=== PATIENT | male | born 1965 | race Caucasian/White ===

== ENCOUNTER 2017-08-15 21:02 | Observation (INO) | payer BC, OTHER ==
[~2017-08-15] VITALS: Ht 167.6 cm; Wt 70.1 kg
[~2017-08-15 21:02] MED LIST: ACET-1256 PO; IBUP-1050 PO
[2017-08-15 21:50] LABS: BASO % 0.3 %; BASO ABS # 0.02 K/uL (0-0.2); EOS ABS # 0.13 K/uL (0-0.5); HEMATOCRIT 40.6 % (42-52); HEMOGLOBIN 14.1 g/dL (14.0-18.0); IG# 0.01 K/uL (0.00-0.02); LYMPH % 45.3 %; LYMPH ABS # 2.92 K/uL (1.2-3.4); MEAN CELL VOLUME 88.5 fL (80-100); MEAN CORPUSCULAR HEMOGLOBIN 30.7 pg (25-34); MEAN CORPUSCULAR HGB CONC 34.7 g/dl (32-36); MEAN PLATELET VOLUME 10.9 fL (7.4-10.4); MONO % 5.7 %; MONO ABS # 0.37 K/uL (0.11-0.59); NEUT % 46.5 %; PLATELET COUNT 217 K/uL (130-400); RED CELL DISTRIBUTION WIDTH CV 14.2 % (11.5-14.5); RED CELL DISTRIBUTION WIDTH SD 45.6 fL (36.4-46.3); WHITE BLOOD COUNT 6.45 K/uL (4.8-10.8)
--- NOTE | 2017-08-15 22:05 | DIAGNOSTIC IMAGING REPORT ---
CHEST ONE VIEW PORTABLE CLINICAL HISTORY: Chest Pain dyspnea COMPARISON STUDY: No previous studies for comparison. FINDINGS: The bones soft tissues and hemidiaphragms are normal. The cardiomediastinal silhouette is normal. The lungs are clear. The pulmonary vasculature is normal. IMPRESSION: Negative chest. The above report was generated using voice recognition software. It may contain grammatical, syntax or spelling errors. Electronically signed by: Franco Grossman M.D. 08/15/2017 10:03 PM Dictated Date/Time: 08/15/2017 10:03 PM
[2017-08-15 22:19] LABS: BLOOD UREA NITROGEN 5 mg/dl (7-18); CALCIUM 8.8 mg/dl (8.5-10.1); CARBON DIOXIDE 28 mmol/L (21-32); CKMB 1.3 ng/ml (0.5-3.6); CREATININE 1.24 mg/dl (0.60-1.40); GLUCOSE 543 mg/dl (70-99); SODIUM 132 mmol/L (136-145)
[2017-08-15] MEDS ORDERED: GLIP5TAB11 PO (22:22)
[2017-08-15] MEDS ORDERED: WARF5TAB7 PO (22:22)
[2017-08-15] MEDS ORDERED: GLC/500 PO (22:22)
[2017-08-15] MEDS ORDERED: LISI-1116 PO (22:22)
[2017-08-15] MEDS ORDERED: ATOR-24 PO (22:22)
[2017-08-15] MEDS ORDERED: GABA-113 PO (22:22)
[2017-08-15] MEDS ORDERED: INSDGI SC (22:22)
[2017-08-15] MEDS ORDERED: SODIUM CHLORIDE 0.9% 1000ML 2,000 ML IV STA (23:25)
[2017-08-15] MEDS ORDERED: NovoLIN-R INSULIN PER UNIT CHARGE IV STA (23:25)
[2017-08-16] VITALS (10 sets, daily range): BP systolic 85–126; BP diastolic 52–85; PULSE 64–80; TEMP 36.5–37; O2SAT 96–98; Ht 167.6 cm; Wt 70.1 kg
[2017-08-16] MEDS ORDERED: POLYETHYLENE (MIRALAX) 17 GM PACK PO PRN (01:15)
[2017-08-16] MEDS ORDERED: ACETAMINOPHEN 325 MG TAB PO PRN (01:15)
[2017-08-16] MEDS ORDERED: ALUMINUM/MAGNESIUM/SIMETH (MAALOX MAX) 30 ML UDC PO PRN (01:15)
[2017-08-16] MEDS ORDERED: ONDANSETRON INJ 2 MG/ML 2 ML VIAL IV PRN (01:15)
[2017-08-16] MEDS ORDERED: NITROGLYCERIN 0.4 MG SL PER TAB CHARGE SL PRN (01:15)
[2017-08-16] MEDS ORDERED: GLUCAGON FOR INJ 1 MG VIAL SQ PRN (01:30)
[2017-08-16] MEDS ORDERED: GLUCOSE 10 TABS/TUBE PO PRN (01:30)
[2017-08-16] MEDS ORDERED: DEXTROSE 50% 50 ML SYR IV PRN (01:30)
[2017-08-16] MEDS ORDERED: GLUCOSE 40% GEL 15 GM TUBE PO PRN (01:30)
[2017-08-16] MEDS ORDERED: PHARMACY GLYCEMIC MGMT CONSULT PRN (01:54)
--- NOTE | 2017-08-16 01:58 | EMERGENCY ROOM VISIT NOTE ---
History Report prepared by Shanice: Gregg Pineda Under the Supervision of: Dr. Nolberto Ron D.O. First contact with patient: 21:14 Chief Complaint: CHEST PAIN Stated Complaint: CHEST PAIN ON & OFF - DIZZY - RIGHT ARM NUMBNESS History of Present Illness The patient is a 51 year old male who presents to the Emergency Room with complaints of a resolved episode of intermittent, stabbing, chest pain that occurred 3.5 hours ago. He rates his discomfort a 2/10 in severity. The patient states his symptoms lasted for 30 minutes to an hour. He reports his symptoms radiated into his right arm as well. The patient notes he has a history of high cholesterol, diabetes, and a blood clot. He states he is on Coumadin and has not taken it for a week because he ran out. The patient reports he has had a history of this before. He notes nothing makes it better or worse. The patient denies abdominal pain, cough, shortness of breath, runny nose, sorethroat, and a history of heart disease or HTN. Source of History: patient Onset: 3.5 hours ago Position: chest Symptom Intensity: 2/10 Quality: stabbing Timing: resolved Modifying Factors (Worsening): other (nothing) Modifying Factors (Relieving): other (nothing) Associated Symptoms: No sorethroat, No cough, No SOB, No abdominal pain Note: Denies: runny nose Review of Systems See HPI for pertinent positives & negatives. A total of 10 systems reviewed and were otherwise negative. Past Medical & Surgical Medical Problems: (1) Chest pain (2) Diabetes mellitus Family History Blood clots Diabetes mellitus Heart disease Hypertension Social History Smoking Status: Current Every Day Smoker Alcohol Use: none Drug Use: none Marital Status: Housing Status: lives with significant other Occupation Status: employed Current/Historical Medications Scheduled Atorvastatin (Lipitor), 40 MG PO HS Gabapentin (Neurontin), 300 MG PO TID Glipizide (Glucotrol), 5 MG PO BID Insulin Glargine (Lantus), 10 UNITS SC QPM Lisinopril (Lisinopril), 2.5 MG PO DAILY Metformin Hcl (Glucophage), 1,000 MG PO BID Warfarin Sod (Jantoven), 5 MG PO DAILY Allergies Coded Allergies: BEE STING (Verified Allergy, Severe, ANAPHYLAXIS, 6/26/16) Physical Exam Vital Signs Date Time Temp Pulse Resp B/P (MAP) Pulse Ox O2 Delivery O2 Flow Rate FiO2 08/16/17 01:00 78 16 111/73 98 Room Air 08/16/17 00:00 78 16 123/102 98 Room Air 08/15/17 23:21 79 16 111/73 96 08/15/17 21:37 82 08/15/17 21:06 36.9 95 18 123/81 96 Room Air Physical Exam GENERAL: Sitting up in bed, alert, well appearing, well nourished, no distress, non-toxic EYE EXAM: normal conjunctiva. OROPHARYNX: no exudate, no erythema, lips, buccal mucosa, and tongue normal and mucous membranes are moist NECK: supple, no nuchal rigidity, no adenopathy, non-tender LUNGS: Clear to auscultation. Normal chest wall mechanics HEART: no murmurs, S1 normal and S2 normal ABDOMEN: abdomen soft, non-tender, normo-active bowel sounds, no masses, no rebound or guarding. BACK: Back is symmetrical on inspection and there is no deformity, no midline tenderness, no CVA tenderness. SKIN: no rashes and no bruising UPPER EXTREMITIES: upper extremities are grossly normal. Radial pulses equal bilaterally. LOWER EXTREMITIES: No pitting edema. Calves equal bilaterally. NEURO EXAM: Normal sensorium, cranial nerves II-XII grossly intact, normal speech, no gross weakness of arms, no gross weakness of legs. Medical Decision & Procedures ER Provider Diagnostic Interpretation: Radiology results as stated below per my review and the radiologist's interpretation: CHEST ONE VIEW PORTABLE CLINICAL HISTORY: Chest Pain dyspnea COMPARISON STUDY: No previous studies for comparison. FINDINGS: The bones soft tissues and hemidiaphragms are normal. The cardiomediastinal silhouette is normal. The lungs are clear. The pulmonary vasculature is normal. IMPRESSION: Negative chest. The above report was generated using voice recognition software. It may contain grammatical, syntax or spelling errors. Electronically signed by: Franco Grossman M.D. 08/15/2017 10:03 PM Dictated Date/Time: 08/15/2017 10:03 PM Laboratory Results 08/15/17 21:38 Red Blood Count 4.59, Mean Corpuscular Volume 88.5, Mean Corpuscular Hemoglobin 30.7, Mean Corpuscular Hemoglobin Concent 34.7, Mean Platelet Volume 10.9, Neutrophils (%) (Auto) 46.5, Lymphocytes (%) (Auto) 45.3, Monocytes (%) (Auto) 5.7, Eosinophils (%) (Auto) 2.0, Basophils (%) (Auto) 0.3, Neutrophils # (Auto) 3.00, Lymphocytes # (Auto) 2.92, Monocytes # (Auto) 0.37, Eosinophils # (Auto) 0.13, Basophils # (Auto) 0.02 08/15/17 21:38 08/15/17 22:25 Test 08/15/17 21:38 08/15/17 22:25 08/15/17 23:40 08/15/17 23:42 White Blood Count 6.45 K/uL (4.8-10.8) Red Blood Count 4.59 M/uL (4.7-6.1) Hemoglobin 14.1 g/dL (14.0-18.0) Hematocrit 40.6 % (42-52) Mean Corpuscular Volume 88.5 fL (80-100) Mean Corpuscular Hemoglobin 30.7 pg (25-34) Mean Corpuscular Hemoglobin Concent 34.7 g/dl (32-36) Platelet Count 217 K/uL (130-400) Mean Platelet Volume 10.9 fL (7.4-10.4) Neutrophils (%) (Auto) 46.5 % Lymphocytes (%) (Auto) 45.3 % Monocytes (%) (Auto) 5.7 % Eosinophils (%) (Auto) 2.0 % Basophils (%) (Auto) 0.3 % Neutrophils # (Auto) 3.00 K/uL (1.4-6.5) Lymphocytes # (Auto) 2.92 K/uL (1.2-3.4) Monocytes # (Auto) 0.37 K/uL (0.11-0.59) Eosinophils # (Auto) 0.13 K/uL (0-0.5) Basophils # (Auto) 0.02 K/uL (0-0.2) RDW Standard Deviation 45.6 fL (36.4-46.3) RDW Coefficient of Variation 14.2 % (11.5-14.5) Immature Granulocyte % (Auto) 0.2 % Immature Granulocyte # (Auto) 0.01 K/uL (0.00-0.02) Anion Gap 6.0 mmol/L (3-11) Est Creatinine Clear Calc Drug Dose 63.6 ml/min Estimated GFR () 77.5 Estimated GFR (Non- 66.9 BUN/Creatinine Ratio 4.1 (10-20) Calcium Level 8.8 mg/dl (8.5-10.1) Creatine Kinase MB 1.3 ng/ml (0.5-3.6) Creatine Kinase MB Ratio (0-3.0) Troponin I < 0.015 ng/ml (0-0.045) D-Dimer 210 ug/L FEU (0-500) Total Creatine Kinase 73 U/L (39-308) Beta-Hydroxybutyric Acid 1.81 mg/dL (0.2-2.81) Urine Color YELLOW Urine Appearance CLEAR (CLEAR) Urine pH 5.0 (4.5-7.5) Urine Specific [place] 1.043 (1.000-1.030) Urine Protein NEG (NEG) Urine Glucose (UA) 3+ (NEG) Urine Ketones NEG (NEG) Urine Occult Blood NEG (NEG) Urine Nitrite NEG (NEG) Urine Bilirubin NEG (NEG) Urine Urobilinogen NEG (NEG) Urine Leukocyte Esterase NEG (NEG) Urine WBC (Auto) 0 /hpf (0-5) Urine RBC (Auto) 0-4 /hpf (0-4) Urine Hyaline Casts (Auto) 0 /lpf (0-5) Urine Epithelial Cells (Auto) 0-5 /lpf (0-5) Urine Bacteria (Auto) NEG (NEG) Venous Blood pH 7.42 (7.36-7.41) Venous Blood Partial Pressure CO2 45 mmHg (38.0-50.0) Venous Blood Partial Pressure O2 38 mmHg Venous Blood HCO3 28 mmol/L Venous Blood Oxygen Saturation 75.0 % Venous Blood Base Excess 3.3 mEq/L Laboratory results per my review. Medications Administered Medications (Trade) Dose Ordered Sig/Rita Route Start Time Stop Time Status Last Admin Dose Admin Sodium Chloride 2,000 ml @ 999 mls/hr Q2H1M STAT IV 08/15/17 23:25 08/16/17 01:25 DC 08/15/17 23:36 999 MLS/HR Insulin Human Regular (novoLIN-R U-100 PER UNIT) 10 units NOW STAT IV 08/15/17 23:25 08/15/17 23:26 DC 08/15/17 23:31 10 UNITS ECG Per My Interpretation Indication: chest pain Rate (beats per minute): 85 Rhythm: sinus rhythm Findings: other (Normal axis. Normal intervals. Poor baseline in the inferior.) Comparison ECG Date: 08/29/98 Change: no significant change Change: Repeat EKG in the same visit: Sinus rhythm with a rate of 74. Normal axis. No PVCs. ED Course ED COURSE: Vital signs were reviewed and showed normal vitals. The patients medical record was reviewed The above diagnostic studies were performed and reviewed. ED treatments and interventions as stated above. 4: The patient was evaluated in room A09B. A complete history and physical examination was performed. 1: I reevaluated the patient. He is updated, pain free, and he is having blood being redrawn. 2325: Ordered Insulin Human Regular 10 units IV, Sodium Chloride 2000 ml @ 999 mls/hr IV 2335: Upon reevaluation, the patient is feels uncomfortable about being discharged home. His heart score is 3. I discussed my findings with the patient and he understands and agrees with the treatment plan. 2354: I discussed the patient's case with Dr. Ellison, [facility]. The patient will be evaluated for further management and care. Based on the patients age, coexisting illnesses, exam and lab findings the decision to treat as an inpatient was made. The patient remained stable while under my care. The patient will be evaluated for further management. Medical Decision Differential diagnoses includes but is not limited to acute coronary syndrome, myocardial infarction, pericarditis, pulmonary embolus, aortic dissection, pneumonia, pneumothorax, musculoskeletal, shingles, esophageal. Patient is a 51-year-old male with a past medical history diabetes, hypertension and smoker who presents the ER for just right of sternal chest pain along with right arm pain. EKG was unchanged 2. CBC along with BMP and troponin were remarkable for a BSG at 543. No gap. Beta hydroxybutyric was negative. UA is negative. D-dimer is negative. Patient was asymptomatic while here. Patient was given IV fluids and insulin. INR was not checked as he does not taking Coumadin with the exception of today for the past week. History is very atypical for cardiac etiology especially with a negative troponin and an unchanged EKG. Patient's heart score is 3. Explained the risk and benefits and offered discharge but he notes he feels uncomfortable going home. Based on this I did discuss case with the hospitalist. Patient will was evaluated for possible observation of his right-sided precordial chest pain in combination with hyperglycemia which is likely causing his dizziness. Medication Reconcilliation Current Medication List: was personally reviewed by me Blood Pressure Screening Patient's blood pressure: Normal blood pressure Blood pressure disposition: Did not require urgent referral Consults Time Called: [phone] Consulting Physician: Eliane Hutchins Hospitalist Returned Call: [phone] I discussed the patient's case with Eliane Hutchins [facility]. The patient will be evaluated for further management and care. Impression Primary Impression: Precordial chest pain Additional Impression: Hyperglycemia Scribe Attestation The scribe's documentation has been prepared under my direction and personally reviewed by me in its entirety. I confirm that the note above accurately reflects all work, treatment, procedures, and medical decision making performed by me. Departure Information Dispostion Being Evaluated By Hospitalist Referrals Meghan Madison,P.A. (PCP) Patient Instructions [facility] Problem Qualifiers
[2017-08-16] MEDS ORDERED: IV FLUIDS COMPLETED PRN (02:00)
[2017-08-16] MEDS ORDERED: INSULIN GLARGINE SOLOSTAR 100 UNITS/ML 3 ML PEN SC STA (02:10)
[2017-08-16] MEDS ORDERED: INSULIN ASPART 100 UNITS/ML 3 ML PEN SC STA (02:11)
--- NOTE | 2017-08-16 02:12 | HISTORY & PHYSICAL EXAMINATION ---
DATE OF ADMISSION: 08/15/2017 CHIEF COMPLAINT: Chest pain. HISTORY OF PRESENT ILLNESS: This 51-year-old male with past medical history significant for diabetes type 2, hyperlipidemia, tobacco disorder, hypertension, presents with chest pain. The patient says he walked outside, came and sat in a chair in the evening when he noticed mild chest discomfort and also some numbness in the right hand and some dizziness, which brought him to the ER. By the time he was seen in the ER, the symptoms resolved. Currently, resting comfortably and hemodynamically stable. Denies any headaches. No blurred vision. No earache, no runny nose, no sore throat, no difficulty swallowing, no shortness of breath, no cough, no fever, no chills. Appetite is okay. No nausea, no vomiting, no sweating, no abdominal pain. Normal bowel and bladder movements. No blood in stools, no blood in the urine. Currently, no edema in the lower extremities. No rash. Patient did not visit his family doctor since more than a year now and not taking his medications except for Coumadin. The patient says he is noncompliant with meds , because he is having hectic work schedule He says he can afford most of the medications except for Lantus, which is expensive. ALLERGIES: BEE VENOM. PAST MEDICAL HISTORY: As mentioned above. PAST SURGICAL HISTORY: Appendectomy, tonsillectomy, cataract surgeries, vasectomy. MEDICATIONS: Supposed to be on atorvastatin 40 mg p.o. at bedtime, gabapentin 300 mg p.o. t.i.d., glipizide 5 mg p.o. b.i.d., lisinopril 2.5 mg p.o. daily, Lantus 10 units at bedtime, Coumadin 5 mg p.o. daily, Glucophage 1000 mg p.o. b.i.d. FAMILY HISTORY: Significant for mother had diabetes, hypertension, and migraines. SOCIAL HISTORY: Smokes 1 pack a day. No alcohol use. No drug use. REVIEW OF SYMPTOMS: As per HPI. Rest of review of symptoms negative. PHYSICAL EXAMINATION: GENERAL: Patient is of moderate build, not in distress. VITAL SIGNS: Temperature 36.9, pulse 70, respiratory rate 16, blood pressure 111/73, oxygen 98% on room air. HEENT: No pallor, no icterus. Pupils equal, round, and reactive to light. NECK: No JVD, no neck masses, no carotid bruits. CARDIOVASCULAR: S1, S2, regular rate and rhythm, no murmur, no gallop. RESPIRATORY SYSTEM: Clear to auscultation bilaterally. No wheezing, no crackles. ABDOMEN: Soft, bowel sounds present. Nontender. No distention. CENTRAL NERVOUS SYSTEM: Cranial nerves II-XII grossly intact. Nonfocal. EXTREMITIES: No edema, no erythema. LABS: WBC 6.4, hemoglobin 14.1, hematocrit 40.6, platelets 217. Sodium 132, potassium 4, chloride 98, CO2 is 28, BUN 5, creatinine 1.2, serum glucose 543, calcium 8.8, total creatine kinase 73, CK-MB 1.3, troponin I is 0.015. Urinalysis negative. Chest x-ray, negative chest. EKG, normal sinus rhythm at rate of 74, no acute ST changes seen, no significant change seen. ASSESSMENT AND PLAN: This is a 51-year-old male presents with chest pain. 1. Chest pain, rule out acute coronary syndrome. Initial workup is negative. Risk factors are age, diabetes, high cholesterol,and not compliant with medications. We will monitor on tele floor. Serial cardiac enzymes, echocardiogram, consult cardiology in a.m. 2. Diabetes type 2. Supposed to be on metformin, Lantus, and glipizide, but noncompliant with medications. The patient says he has heavy work load, goes to work and come back to sleep and goes to work and says he can afford most of the medications except Lantus, which is very expensive. Patient's blood sugar was 540 in the ER. The patient got 10 units of insulin and his sugar was brought down to 240. We will give a dose of Lantus and insulin sliding scale and continue home Lantus 10 units at bedtime and check HbA1c level in the a.m. Diabetic teaching and pharmacy consult. Counseling for compliance. 3. Hypertension, on lisinopril, but not taking medication. Continue lisinopril and monitor the blood pressure. 4. Hyperlipidemia, supposed to be on Lipitor, but not taking. Follow fasting lipid profile. 5. History of deep venous thrombosis. The patient is taking Coumadin, but he did not take for last 1 week because he ran out of the prescription, but he took a dose today. We will follow the INR and needs to follow with the [facility]. 6. Deep venous thrombosis prophylaxis, SCDs, on Coumadin follow INR. DISPOSITION: Observation to tele floor. Expect to discharge home and follow with family doctor. Level 1 full code. MTDD
[2017-08-16] MEDS ORDERED: SODIUM CHLORIDE 0.9% 1000ML 1,000 ML IV SCH (03:00)
[2017-08-16 06:16] LABS: HEMATOCRIT 35.7 % (42-52); HEMOGLOBIN 12.2 g/dL (14.0-18.0); MEAN CELL VOLUME 88.6 fL (80-100); MEAN CORPUSCULAR HEMOGLOBIN 30.3 pg (25-34); MEAN CORPUSCULAR HGB CONC 34.2 g/dl (32-36); MEAN PLATELET VOLUME 10.5 fL (7.4-10.4); PLATELET COUNT 165 K/uL (130-400); RED CELL DISTRIBUTION WIDTH SD 45.5 fL (36.4-46.3); WHITE BLOOD COUNT 5.77 K/uL (4.8-10.8)
[2017-08-16 06:53] LABS: CALCIUM 7.7 mg/dl (8.5-10.1); CREATININE 0.83 mg/dl (0.60-1.40); POTASSIUM 3.1 mmol/L (3.5-5.1)
[2017-08-16 06:54] LABS: BASO % 0.5 %; BASO ABS # 0.03 K/uL (0-0.2); EOS % 2.8 %; EOS ABS # 0.16 K/uL (0-0.5); IG# 0.01 K/uL (0.00-0.02); LYMPH % 56.3 %; LYMPH ABS # 3.25 K/uL (1.2-3.4); MONO % 6.1 %; MONO ABS # 0.35 K/uL (0.11-0.59); NEUT % 34.1 %; NEUT ABS # 1.97 K/uL (1.4-6.5)
[2017-08-16] MEDS ORDERED: INSULIN ASPART 100 UNITS/ML 3 ML PEN SC SCH ×2 (07:00→07:45)
[2017-08-16] MEDS ORDERED: POTASSIUM CHLORIDE 20 MEQ TABCR PO STA (07:27)
[2017-08-16] MEDS: GABAPENTIN 300 MG CAP PO SCH ×3 (07:28→20:41)
[2017-08-16] MEDS ORDERED: MAGNESIUM SULFATE 1GM / D5W 100 ML IV STA (08:58)
[2017-08-16] MEDS ORDERED: LISINOPRIL 2.5 MG TAB PO SCH (09:00)
--- NOTE | 2017-08-16 11:03 | Cardiology Consultation ---
Cardiology Consultation Date of Consultation: August 16, 2017 Requesting Physician: Trera Attending Engagement Mgr: Scott (Franco Waters PA-C) History of Present Illness Mr. Guzman is a 51-year-old male who is being seen at the request of Dr. Ellison. Reason for consultation is chest discomfort. Mr. Guzman describes being outside doing stuff, putting the skirting back on a trailer without difficulty. Upon returning inside, while sitting down watching television, he developed a sharp stabbing discomfort just right of his sternum followed shortly thereafter by numbness and tingling from just below his right elbow into the distal right upper extremity. 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 No exertional chest pain or discomfort. He notes no prior cardiac history though carries multiple cardiac risk factors including a 20 year history of type 2 diabetes mellitus, 30 years of tobacco abuse ( ongoing), hypertension, dyslipidemia, and inactivity. He is noncompliant with medications as well. Workup in the ER included a chest x-ray which showed no acute processes. Cardiac enzymes and EKG are without acute change. Follow-up EKG also showed no acute change. D-dimer was normal. Mr. Guzman denies prior cardiac history. He specifically denies history of CAD , TX, CHF, arrhythmias, heart murmur, rheumatic fever, or scarlet fever. (Franco Waters PA-C) Past Medical/Surgical History Problem List: Type 2 diabetes mellitus, diagnosed at age 31. Hypertension Dyslipidemia Chronic tobacco abuse Right lower extremity DVT in September 2015 Medication noncompliance Vasectomy Bilateral cataract extraction Tonsillectomy Appendectomy Right wrist surgery (Franco Waters PA-C) Family History Blood clots Diabetes mellitus Heart disease Hypertension Mother passed at age 71 from complications of diabetes mellitus. She had hypertension. Father was killed in a car accident when the patient was young. One brother with type 2 diabetes mellitus. Sister with ? CAD. (Franco Waters PA-C) Blood clots Diabetes mellitus Heart disease Hypertension (Greg Chavez M.D.) Social History Smoker, 1-1-1/2 pack per day. He started smoking around the age of 14. Alcohol : 2-3 beers one day per week, typically at the [employer] on Tuesday nights. No illegal drug use. . Grown children. Works at [employer]. Smoking Status: Current Every Day Smoker Drug Use: none Marital Status: Housing Status: lives with family Occupation: employed (Franco Waters PA-C) Review Of Systems General: No change in weight. No fevers. No chills. No night sweats. HEENT: Dizziness. Glasses. Bilateral cataract extraction in 2007. No headache. No head trauma. Cardiovascular: CP. RAMSEY. No palpitations, orthopnea, PND, peripheral edema, near syncope, or syncope. Pulmonary: No pleurisy. No hemoptysis Gastrointestinal: No nausea, vomiting, or diarrhea. : Nocturia 4-5 Skin: No rash. No tick bites. Musculoskeletal: No myalgias. No arthralgias. Neurological: Denies history of TIA, CVA, or seizures Complete review of system is otherwise as stated above, negative, noncontributory. (Franco Waters PA-C) Allergies Coded Allergies: BEE STING (Verified Allergy, Severe, ANAPHYLAXIS, 10/12/15) Medications Reported Home Medications Medications Dose Route/Sig Max Daily Dose Days Date Category Dose Instructions Lisinopril 2.5 Mg Tab 2.5 Mg PO DAILY 08/15/17 Reported Neurontin (Gabapentin) 300 Mg Cap 300 Mg PO TID 08/15/17 Reported Lipitor (Atorvastatin Calcium) 40 Mg Tab 40 Mg PO HS 08/15/17 Reported Lantus (Insulin Glargine) 100 Unit/Ml Inj 10 Units SC QPM 08/15/17 Reported Glucophage (Metformin Hcl) 500 Mg Tab 1,000 Mg PO BID 08/15/17 Reported Glucotrol (Glipizide) 5 Mg Tab 5 Mg PO BID 08/15/17 Reported TAKE THIS MEDICATION TWICE DAILY 30 MINUTES BEFORE MORNING AND EVENING MEALS Jantoven (Warfarin Sodium) 5 Mg Tab 5 Mg PO DAILY 08/15/17 Reported TAKE 5 MG EVERY DAY OR OTHERWISE DIRECTED TO TAKE BY ANTICOAGULATION CLINIC/MD (Franco Waters PA-C) Physical Exam Vital Signs (Last 8hrs): Last 8 Hrs Date Time Temp Pulse Resp B/P (MAP) Pulse Ox O2 Delivery O2 Flow Rate FiO2 08/16/17 08:00 Room Air 08/16/17 07:03 36.6 66 16 101/65 (77) 97 Room Air 08/16/17 04:00 96 Nasal Cannula 08/16/17 03:41 36.6 64 18 109/70 (83) 96 Nasal Cannula General Appearance: Alert and Oriented x3. NAD. HEENT: Normocephalic Atraumatic. PER, EOMI, conjunctiva and sclera clear Neck: Supple. Right carotid bruit. No JVD. No HJD. Respiratory: Decreased. Diminished. No wheezes. No rales. No rhonchi. Cardiovascular: Somewhat distant heart sounds. Regular rate and rhythm. No murmurs appreciated. No rub. PMI is nondisplaced. Abdomen: Normal bowel sounds, soft nontender. no abdominal bruits. Extremities: No edema, no clubbing or cyanosis. distal pulses 2/4 bilaterally. Neuro: No focal deficits. Psychiatric: Normal affect. (Franco Waters PA-C) Data Last 24 Hours Test 08/15/17 21:38 08/15/17 22:25 08/15/17 23:40 08/15/17 23:42 White Blood Count 6.45 K/uL Red Blood Count 4.59 M/uL Hemoglobin 14.1 g/dL Hematocrit 40.6 % Mean Corpuscular Volume 88.5 fL Mean Corpuscular Hemoglobin 30.7 pg Mean Corpuscular Hemoglobin Concent 34.7 g/dl Platelet Count 217 K/uL Mean Platelet Volume 10.9 fL Neutrophils (%) (Auto) 46.5 % Lymphocytes (%) (Auto) 45.3 % Monocytes (%) (Auto) 5.7 % Eosinophils (%) (Auto) 2.0 % Basophils (%) (Auto) 0.3 % Neutrophils # (Auto) 3.00 K/uL Lymphocytes # (Auto) 2.92 K/uL Monocytes # (Auto) 0.37 K/uL Eosinophils # (Auto) 0.13 K/uL Basophils # (Auto) 0.02 K/uL RDW Standard Deviation 45.6 fL RDW Coefficient of Variation 14.2 % Immature Granulocyte % (Auto) 0.2 % Immature Granulocyte # (Auto) 0.01 K/uL Sodium Level 132 mmol/L Potassium Level mmol/L 4.0 mmol/L Chloride Level 98 mmol/L Carbon Dioxide Level 28 mmol/L Anion Gap 6.0 mmol/L Blood Urea Nitrogen 5 mg/dl Creatinine 1.24 mg/dl Est Creatinine Clear Calc Drug Dose 63.6 ml/min Estimated GFR () 77.5 Estimated GFR (Non- 66.9 BUN/Creatinine Ratio 4.1 Random Glucose 543 mg/dl Calcium Level 8.8 mg/dl Total Creatine Kinase U/L 73 U/L Creatine Kinase MB 1.3 ng/ml Creatine Kinase MB Ratio Troponin I < 0.015 ng/ml Beta-Hydroxybutyric Acid mg/dL 1.81 mg/dL D-Dimer 210 ug/L FEU Urine Color YELLOW Urine Appearance CLEAR Urine pH 5.0 Urine Specific [place] 1.043 Urine Protein NEG Urine Glucose (UA) 3+ Urine Ketones NEG Urine Occult Blood NEG Urine Nitrite NEG Urine Bilirubin NEG Urine Urobilinogen NEG Urine Leukocyte Esterase NEG Urine WBC (Auto) 0 /hpf Urine RBC (Auto) 0-4 /hpf Urine Hyaline Casts (Auto) 0 /lpf Urine Epithelial Cells (Auto) 0-5 /lpf Urine Bacteria (Auto) NEG Venous Blood pH 7.42 Venous Blood Partial Pressure CO2 45 mmHg Venous Blood Partial Pressure O2 38 mmHg Venous Blood HCO3 28 mmol/L Venous Blood Oxygen Saturation 75.0 % Venous Blood Base Excess 3.3 mEq/L Test 08/16/17 01:45 08/16/17 03:12 08/16/17 05:44 08/16/17 09:01 Bedside Glucose 158 mg/dl 215 mg/dl 195 mg/dl White Blood Count 5.77 K/uL Red Blood Count 4.03 M/uL Hemoglobin 12.2 g/dL Hematocrit 35.7 % Mean Corpuscular Volume 88.6 fL Mean Corpuscular Hemoglobin 30.3 pg Mean Corpuscular Hemoglobin Concent 34.2 g/dl Platelet Count 165 K/uL Mean Platelet Volume 10.5 fL Neutrophils (%) (Auto) 34.1 % Lymphocytes (%) (Auto) 56.3 % Monocytes (%) (Auto) 6.1 % Eosinophils (%) (Auto) 2.8 % Basophils (%) (Auto) 0.5 % Neutrophils # (Auto) 1.97 K/uL Lymphocytes # (Auto) 3.25 K/uL Monocytes # (Auto) 0.35 K/uL Eosinophils # (Auto) 0.16 K/uL Basophils # (Auto) 0.03 K/uL RDW Standard Deviation 45.5 fL RDW Coefficient of Variation 14.0 % Immature Granulocyte % (Auto) 0.2 % Immature Granulocyte # (Auto) 0.01 K/uL Prothrombin Time 10.9 SECONDS Prothromb Time International Ratio 1.0 Sodium Level 143 mmol/L Potassium Level 3.1 mmol/L Chloride Level 110 mmol/L Carbon Dioxide Level 28 mmol/L Anion Gap 5.0 mmol/L Blood Urea Nitrogen 5 mg/dl Creatinine 0.83 mg/dl Est Creatinine Clear Calc Drug Dose 95.0 ml/min Estimated GFR () 118.1 Estimated GFR (Non- 101.9 BUN/Creatinine Ratio 5.6 Random Glucose 152 mg/dl Estimated Average Glucose 384 mg/dl Hemoglobin A1c 15.0 % Calcium Level 7.7 mg/dl Magnesium Level 1.8 mg/dl Troponin I < 0.015 ng/ml Triglycerides Level 118 mg/dl Cholesterol Level 191 mg/dl HDL Cholesterol 34 mg/dl LDL Cholesterol, Calculated 133 mg/dl VLDL Cholesterol, Calculated 24 mg/dl Cholesterol/HDL Ratio 5.6 Admission chest x-ray: Negative chest. EKG on presentation revealed normal sinus rhythm at 85 bpm with low voltage QRS. When compared to prior EKG from August 29, 1998 there was no significant change found. EKG dated August 15, 2017 at 23:20:17 revealed normal sinus rhythm at 74 bpm with low voltage QRS. When compared to the prior EKG from earlier in the evening there was no significant change. Continuous telemetry monitoring reveals sinus rhythm, currently at 68 bpm. No significant tachycardia or bradycardia arrhythmias observed. Orthostatic vital signs this morning revealed following: Lying 126/85 with a heart rate of 73. Sitting 104/72 with a heart rate of 80. Standing 104/68 with a heart rate of 78. (Franco Waters PA-C) Assessment & Plan Noncompliant 51-year-old male with multiple cardiac risk factors (long-standing type 2 diabetes mellitus and tobacco abuse, hypertension, dyslipidemia, physical inactivity) who presented to [facility] with atypical chest discomfort. Chest x-ray, cardiac enzymes, EKG, and continuous telemetry monitoring are benign. Options discussed. Given observed orthostatic hypotension would recommend holding lisinopril as well as administration of IV fluids. Potassium will need to be supplemented orally given the observed hypokalemia this morning. Once these issues are corrected will proceed with exercise stress testing (in the morning of 08/17/2017). (Franco Waters PA-C) Patient seen and personally examined, all charts reviewed. Assessment as noted above by Franco Waters. Patient notes significantly elevated glucoses, weight loss of nearly 20 pounds over the past 2-3 months frequent nocturia likely in association with hyperglycemia. Current examination reflects orthostasis likely induced by hypertonic diuresis. Initial cardiac evaluation does not suggest acute ischemia. May consider stress testing as part of course, however would need clinical improvement prior to doing so. Will reassess in a.m. Greg Chavez MD (Greg Chavez M.D.)
--- NOTE | 2017-08-16 11:41 | DIAGNOSTIC IMAGING REPORT ---
BILATERAL LOWER EXTREMITY VENOUS DOPPLER CLINICAL HISTORY: History of deep venous thrombus. COMPARISON STUDY: Right lower extremity venous Doppler October 12, 2015. TECHNIQUE: Sonography of the deep venous system of the bilateral lower extremities was performed. Compression and augmentation were evaluated. FINDINGS: Note is made of nonocclusive thrombus within the right common femoral, superficial femoral and popliteal veins. These vessels were incompletely compressible. Of note, thrombus was shown within these veins on ultrasound of October 12, 2015. The left common femoral, superficial femoral and popliteal veins were compressible. Augmentation was normal. Flow was shown within the deep calf vessels. IMPRESSION: 1. Nonocclusive deep venous thrombus within the right common femoral, superficial femoral and popliteal veins. Although age indeterminate, this thrombus is likely chronic when correlating with ultrasound of October 12, 2015 which demonstrated thrombus within these vessels. 2. No evidence of deep venous thrombus within the left lower extremity. Electronically signed by: Eron Peterson M.D. 08/16/2017 11:40 AM Dictated Date/Time: 08/16/2017 11:37 AM
--- NOTE | 2017-08-16 11:46 | Pharmacy Progress Note ---
Glycemic Control Intl Consult Date of Service August 16, 2017. Scope Glycemic Pharmacist consulted by Dr Ellison on 08/16/17 for glycemic control and to write orders per [facility] inpatient glycemic control protocol Objective Weight (Kilograms): 68.500 Accuchecks BSG (last 24hrs): Test 08/15/17 21:38 08/16/17 01:45 08/16/17 03:12 08/16/17 05:44 Random Glucose 543 mg/dl (70-99) 152 mg/dl (70-99) Bedside Glucose 158 mg/dl (70-99) 215 mg/dl (70-99) Test 08/16/17 09:01 Bedside Glucose 195 mg/dl (70-99) Laboratory Data (last 24hrs) Test 08/15/17 21:38 08/15/17 22:25 08/16/17 05:44 Anion Gap 6.0 mmol/L 5.0 mmol/L BUN/Creatinine Ratio 4.1 5.6 Blood Urea Nitrogen 5 mg/dl 5 mg/dl Creatinine 1.24 mg/dl 0.83 mg/dl Potassium Level mmol/L 4.0 mmol/L 3.1 mmol/L Sodium Level 132 mmol/L 143 mmol/L White Blood Count 6.45 K/uL 5.77 K/uL Red Blood Count 4.59 M/uL 4.03 M/uL Hemoglobin 14.1 g/dL 12.2 g/dL Hematocrit 40.6 % 35.7 % Mean Corpuscular Volume 88.5 fL 88.6 fL Mean Corpuscular Hemoglobin 30.7 pg 30.3 pg Mean Corpuscular Hemoglobin Concent 34.7 g/dl 34.2 g/dl Platelet Count 217 K/uL 165 K/uL Mean Platelet Volume 10.9 fL 10.5 fL Neutrophils (%) (Auto) 46.5 % 34.1 % Lymphocytes (%) (Auto) 45.3 % 56.3 % Monocytes (%) (Auto) 5.7 % 6.1 % Eosinophils (%) (Auto) 2.0 % 2.8 % Basophils (%) (Auto) 0.3 % 0.5 % Neutrophils # (Auto) 3.00 K/uL 1.97 K/uL Lymphocytes # (Auto) 2.92 K/uL 3.25 K/uL Monocytes # (Auto) 0.37 K/uL 0.35 K/uL Eosinophils # (Auto) 0.13 K/uL 0.16 K/uL Basophils # (Auto) 0.02 K/uL 0.03 K/uL Hemoglobin A1c 15.0 % HbA1c Test 08/16/17 05:44 Hemoglobin A1c 15.0 % (4.5-5.6) H Recent Pertinent Medications Outpatient Anti-diabetic Regimen: * non-compliant with outpatient regimen * ordered: * Metformin * Lantus * Glipizide Assessment & Plan ASSESSMENT: * 51yo T2DM male with poor outpatient control per recent A1c * Goal A1c is likely ~7% based on age/co-morbidities. Oral agents alone will not be able to decrease A1c to goal range * Pt was NPO this morning. Will resume a diet today and then NPO again after midnight for stress testing tomorrow AM * Will start with conservative weight based insulin dosing (for NPO status) and titrate based on BSG trends. * Also, will need to start conservative insulin dosing d/t significantly elevated A1c. Dropping BSG too quickly can cause retinal complications. PLAN FOR INPATIENT GLYCEMIC CONTROL: * Holding outpatient oral diabetes medications * Basal insulin * Lantus 10 units SQ BID * Bolus insulin * NovoLog per scale ACHS or Q6hrs while NPO * Goal Range: Low 110 mg/dL - High 140 mg/dL * Correction Factor: 30 mg/dL/unit * Nutritional / Prandial insulin per carb ratio of 1 unit per 10 grams CHO consumed * Please note that the plan above was derived based on current level of insulin resistance and hospital stress. These recommendations are appropriate for inpatient admission only. Plan of care upon discharge will need to be reassessed to avoid potential outpatient hypo/hyperglycemia. Thank you.
[2017-08-16] MEDS ORDERED: NURSING VERBAL MED ORDER ONE (12:00)
--- NOTE | 2017-08-16 12:30 | ECHOCARDIOGRAM REPORT ---
*NOTICE TO RECEIVING [employer] This information is strictly Confidential and protected under [place] law. [place] law prohibits you from making any further disclosure of this information unless further disclosure is expressly permitted by the written consent of the person to whom it pertains or is authorized by law. A general authorization for the release of medical or other information is not sufficient for this purpose. Hospital accepts no responsibility if the information is made available to any other person, INCLUDING THE PATIENT. Interpretation Summary * Name: EMILY TENORIO Study Date: 08/16/2017 07:37 AM BP: 109/70 mmHg * Patient Location: C.2T\S\S230\S\2 HR: 68 * : 1965 (M/d/yyyy) Gender: Male Height: 66 in * Age: 51 yrs Ethnicity: CA Weight: 153 lb * Ordering Physician: Grover Ellison * Referring Physician: Self, Referred * Performed By: Claudia Bagley RCS * * Reason For Study: CHEST PAIN * BSA: 1.8 m2 * -- Conclusions -- * The left ventricle is normal in size. * There is borderline concentric left ventricular hypertrophy. * Left ventricular systolic function is normal. * The left ventricular wall motion is normal. * Ejection Fraction = 60-65%. * Aortic valve sclerosis mild, without significant aortic valvular stenosis. * There is mild tricuspid regurgitation. Procedure Details * A complete two-dimensional transthoracic echocardiogram was performed (2D, M-mode, Doppler and color flow Doppler). Left Ventricle * The left ventricle is normal in size. * There is borderline concentric left ventricular hypertrophy. * Left ventricular systolic function is normal. * Ejection Fraction = 60-65%. * The left ventricular wall motion is normal. Right Ventricle * The right ventricle is normal in size and function. Atria * The left atrial size is normal. * Right atrial size is normal. * No ASD detected; PFO is not assessed. Mitral Valve * The mitral valve is normal. * There is no mitral valve stenosis. * There is trace mitral regurgitation. Tricuspid Valve * The tricuspid valve anatomy is normal. * There is no tricuspid stenosis. * There is mild tricuspid regurgitation. * Doppler findings do not suggest pulmonary hypertension. Aortic Valve * The aortic valve is trileaflet. * Aortic valve sclerosis mild, without significant aortic valvular stenosis. * No hemodynamically significant valvular aortic stenosis. * No aortic regurgitation is present. Pulmonic Valve * The pulmonic valve is not well visualized. Great Vessels * The aortic root is normal size. Pericardium/Pleural * There is no pericardial effusion. Great Vessels * Normal inferior vena cava diameter and respiratory variation suggests normal central venous pressure. MMode 2D Measurements and Calculations IVSd 1.1 cm IVSs 1.2 cm LVIDd 4.1 cm LVIDs 3.4 cm LVPWd 1.0 cm LVPWs 1.1 cm IVS/LVPW 1.0 FS 18.4 % EDV(Teich) 74.5 ml ESV(Teich) 45.8 ml EF(Teich) 38.5 % EDV(cubed) 69.2 ml ESV(cubed) 37.7 ml EF(cubed) 45.6 % % IVS thick 16.4 % % LVPW thick 4.7 % LV mass(C)d 143.9 grams LV mass(C)dI 80.6 grams/m\S\2 LV mass(C)s 123.2 grams LV mass(C)sI 69.0 grams/m\S\2 SV(Teich) 28.7 ml SI(Teich) 16.1 ml/m\S\2 SV(cubed) 31.6 ml SI(cubed) 17.7 ml/m\S\2 Ao root diam 3.2 cm Ao root area 8.3 cm\S\2 ACS 2.2 cm LA dimension 2.3 cm LA/Ao 0.71 LVOT diam 2.1 cm LVOT area 3.3 cm\S\2 LVAd ap4 34.4 cm\S\2 LVLd ap4 8.8 cm EDV(MOD-sp4) 108.3 ml EDV(sp4-el) 113.6 ml LVAs ap4 22.8 cm\S\2 LVLs ap4 8.2 cm ESV(MOD-sp4) 51.9 ml ESV(sp4-el) 53.9 ml EF(MOD-sp4) 52.1 % EF(sp4-el) 52.5 % LVAd ap2 30.4 cm\S\2 LVLd ap2 8.8 cm EDV(MOD-sp2) 88.3 ml EDV(sp2-el) 89.3 ml LVAs ap2 21.1 cm\S\2 LVLs ap2 7.7 cm ESV(MOD-sp2) 46.8 ml ESV(sp2-el) 48.9 ml EF(MOD-sp2) 47.0 % EF(sp2-el) 45.3 % LVLd %diff -0.53 % EDV(MOD-bp) 96.9 ml LVLs %diff -5.54 % ESV(MOD-bp) 49.8 ml EF(MOD-bp) 48.6 % SV(MOD-sp4) 56.4 ml SI(MOD-sp4) 31.6 ml/m\S\2 SV(MOD-sp2) 41.5 ml SI(MOD-sp2) 23.3 ml/m\S\2 SV(MOD-bp) 47.1 ml SI(MOD-bp) 26.4 ml/m\S\2 SV(sp4-el) 59.7 ml SI(sp4-el) 33.4 ml/m\S\2 SV(sp2-el) 40.4 ml SI(sp2-el) 22.7 ml/m\S\2 Doppler Measurements and Calculations MV E max ju 65.8 cm/sec MV A max ju 56.1 cm/sec MV E/A 1.2 MV P1/2t max ju 73.3 cm/sec MV P1/2t 57.0 msec MVA(P1/2t) 3.9 cm\S\2 MV dec slope 377.2 cm/sec\S\2 MV dec time 0.19 sec Ao V2 max 88.0 cm/sec Ao max PG 3.1 mmHg Ao max PG (full) 0.54 mmHg FRANCA(V,A) 3.0 cm\S\2 FRANCA(V,D) 3.0 cm\S\2 LV V1 max PG 2.6 mmHg LV V1 max 80.0 cm/sec PA V2 max 66.4 cm/sec PA max PG 1.8 mmHg
[2017-08-16 13:05] LABS: POTASSIUM 3.9 mmol/L (3.5-5.1)
[2017-08-16] MEDS: INSULIN ASPART 100 UNITS/ML 3 ML PEN SC SCH ×3 (13:49→20:43)
[2017-08-16] MEDS: WARFARIN SOD 5 MG TAB PO SCH (16:14)
[2017-08-16] MEDS ORDERED: ENOXAPARIN 100 MG/1ML SYR SQ ONE (16:15)
[2017-08-16] MEDS: INSULIN GLARGINE SOLOSTAR 100 UNITS/ML 3 ML PEN SC SCH (17:35)
--- NOTE | 2017-08-16 18:15 | Progress Note ---
Progress Note Date of Service August 16, 2017. Progress Note Subjective: Patient denies acute chest pain. denies shortness of breath PHYSICAL EXAMINATION: GENERAL: no distress. HEENT: EOMI NECK: No JVD, no neck masses, no carotid bruits. CARDIOVASCULAR: S1, S2, regular rate and rhythm, no murmur, no gallop. RESPIRATORY SYSTEM: Clear to auscultation bilaterally. No wheezing, no crackles. ABDOMEN: Soft, bowel sounds present. Nontender. No distention. EXTREMITIES: No edema, no erythema. ASSESSMENT AND PLAN: This is a 51-year-old male presents with chest pain. Chest pain evaluation: -initial cardiac evaluation does not suggest acute ischemia. -Echocardiogram Conclusions: The left ventricle is normal in size. There is borderline concentric left ventricular hypertrophy. Left ventricular systolic function is normal. The left ventricular wall motion is normal. Ejection Fraction = 60-65%. Aortic valve sclerosis mild, without significant aortic valvular stenosis. There is mild tricuspid regurgitation. -Patient is NPO after midnight in case cardiology service to stress test the patient possibly tomorrow on Diabetes type 2 -Supposed to be on metformin, Lantus, and glipizide, but noncompliant with medications. -currently on insulin in the hospital -will need a Rx for all his diabetes medications and supplies when discharged ( Lantus solostar pen, BD Leonarda insulin pen needles, OneTouch Verio test strips to check up to 4x/day, OneTouch Delica lancets to check up to 4x/day) Hypokalemia -likely from insulin for the diabetes management -patient received oral potassium when serum potassium 3.1, re-check potassium levels an replete to target serum potassium of 4. Blood pressure -Held lisinopril as cardiology service concerned for orthostasis Hyperlipidemia -supposed to be on Lipitor, but not taking History of deep venous thrombosis diagnosed in the past -subtherapeutic INR as patient did not take coumadin for 1 week -Ultrasound lower extremities 08/16/17: 1. Nonocclusive deep venous thrombus within the right common femoral, superficial femoral and popliteal veins. Although age indeterminate, this thrombus is likely chronic when correlating with ultrasound of October 12, 2015 which demonstrated thrombus within these vessels. 2. No evidence of deep venous thrombus within the left lower extremity -despite the age of the blood clots and patient has not had pulmonary embolism event to date despite problems with medication adherence, there is still risk that chronic DVT can cause acute PE, patient started on full dose Lovenox and to bridge to therapeutic INR with coumadin
[2017-08-16] MEDS ORDERED: ATORVASTATIN 20 MG TAB PO SCH (21:00)
[2017-08-16] MEDS ORDERED: INSULIN GLARGINE SOLOSTAR 100 UNITS/ML 3 ML PEN SC SCH (21:00)
[2017-08-17] VITALS: BP 96/64; PULSE 63; TEMP 36.4; O2SAT 98
[2017-08-17 04:00] VITALS: BP 92/62; PULSE 61; TEMP 36.5; O2SAT 96
[2017-08-17 05:34] LABS: HEMATOCRIT 39.1 % (42-52); MEAN CELL VOLUME 90.1 fL (80-100); MEAN CORPUSCULAR HGB CONC 33.2 g/dl (32-36); MEAN PLATELET VOLUME 10.3 fL (7.4-10.4); PLATELET COUNT 155 K/uL (130-400); RED CELL DISTRIBUTION WIDTH CV 13.9 % (11.5-14.5); RED CELL DISTRIBUTION WIDTH SD 46.2 fL (36.4-46.3); WHITE BLOOD COUNT 5.93 K/uL (4.8-10.8)
[2017-08-17 06:03] LABS: ALBUMIN 3.1 gm/dl (3.4-5.0); CALCIUM 8.6 mg/dl (8.5-10.1); CREATININE 0.99 mg/dl (0.60-1.40)
[2017-08-17 06:05] LABS: TOTAL PROTEIN 6.3 gm/dl (6.4-8.2)
[2017-08-17] MEDS: INSULIN GLARGINE SOLOSTAR 100 UNITS/ML 3 ML PEN SC SCH (06:23)
[2017-08-17 07:47] VITALS: BP 95/68; PULSE 61; TEMP 36.6; O2SAT 100
[2017-08-17] MEDS: GABAPENTIN 300 MG CAP PO SCH (08:29)
[2017-08-17] MEDS: INSULIN ASPART 100 UNITS/ML 3 ML PEN SC SCH ×2 (08:33→12:23)
--- NOTE | 2017-08-17 10:13 | Pharmacy Progress Note ---
Pharmacy Glycemic Short Note 2 Date of Service August 17, 2017. OUTPATIENT ANTIDIABETIC REGIMEN: * non-compliant with outpatient regimen * ordered: * Metformin * Lantus * Glipizide Test 08/16/17 11:45 08/16/17 16:22 08/16/17 20:19 08/17/17 05:13 Bedside Glucose 196 mg/dl (70-99) 271 mg/dl (70-99) 182 mg/dl (70-99) Random Glucose 196 mg/dl (70-99) Test 08/17/17 05:54 08/17/17 07:18 08/17/17 08:26 Bedside Glucose 97 mg/dl (70-99) 214 mg/dl (70-99) 194 mg/dl (70-99) ASSESSMENT: 08/17/17 08/16/17 * 51yo T2DM male with poor outpatient control per recent A1c * Goal A1c is likely ~7% based on age/co-morbidities. Oral agents alone will not be able to decrease A1c to goal range * Pt was NPO this morning. Will resume a diet today and then NPO again after midnight for stress testing tomorrow AM * Will start with conservative weight based insulin dosing (for NPO status) and titrate based on BSG trends. * Also, will need to start conservative insulin dosing d/t significantly elevated A1c. Dropping BSG too quickly can cause retinal complications. PLAN FOR INPATIENT GLYCEMIC CONTROL: * Hold outpatient oral diabetes medications * Basal insulin * Lantus [] units SQ BID * Bolus insulin * NovoLog per scale ACHS or Q6hrs while NPO * Goal Range: Low [] mg/dL - High [] mg/dL * Correction Factor: [] mg/dL/unit * Nutritional / Prandial insulin per carb ratio of 1 unit per [] grams CHO consumed PLAN FOR DISCHARGE:
--- NOTE | 2017-08-17 10:14 | Cardiology Follow-Up ---
Subjective General Date of Service: August 17, 2017. Chief Complaint: Right sided chest pain Pt evaluation today including: conversation w/ patient, physical exam, chart review, lab review, review of studies, review of inpatient medication list History of Present Illness Patient seen and examined. Intermittent dizziness continues though has improved. BP remains hypotensive. No chest pain. No palpitations. No dyspnea. Continuous telemetry monitoring reveals sinus, currently around 70 bpm. No significant atrial ventricular arrhythmias. August 16, 2017 TTE Interpretation Summary ([facility], Dr. Chavez): The left ventricle is normal in size. There is borderline concentric left ventricular hypertrophy. Left ventricular systolic function is normal. The left ventricular wall motion is normal. Ejection Fraction = 60-65%. Aortic valve sclerosis mild, without significant aortic valvular stenosis. There is mild tricuspid regurgitation. Allergies Coded Allergies: BEE STING (Verified Allergy, Severe, ANAPHYLAXIS, 10/12/15) Social History Smoking Status: Current Every Day Smoker Hx Tobacco Use In Past Year?: Yes Hx Alcohol Use - Type And Amou: Yes (1 BEER A WEEK) Hx Substance Use - Type And Am: No Problem List Medical Problems: (1) Hyperglycemia Status: Acute (2) Precordial chest pain Status: Acute Physical Exam Vital Signs Last Vital Signs Documentation Date Time Temp Pulse Resp B/P (MAP) Pulse Ox O2 Delivery O2 Flow Rate FiO2 08/17/17 07:47 36.6 61 16 95/68 (77) 100 08/17/17 04:00 Room Air Physical Exam Constitutional: Level of Distress: NAD Psychiatric: Mental Status: active & alert Orientation: to time, to place, to person Memory: recent memory normal, remote memory normal Head: normocephalic, atraumatic Eyes: Pupils: PERRLA Neck: supple, pertinent finding (Normal JVP) Lungs: Respiratory effort: no dyspnea Auscultation: breath sounds normal, no wheezing, no rales/crackles, no rhonchi Cardiovascular: Heart Auscultation: RRR, normal S1, normal S2, no murmurs, no rubs, no gallops Peripheral Pulses: Radial Pulse: normal on the left, normal on the right Dorsalis Pedis Pulse: normal on the left, normal on the right Abdomen: Bowel Sounds: normal Inspection & Palpation: soft Liver: non-tender Extremities: no cyanosis, no edema, no clubbing Neurologic: Cranial Nerves: grossly intact Assessment and Plan Assessment and Plan Admission with atypical right sided chest discomfort and significantly elevated blood glucose readings, preceding weight loss, frequent nocturia, and observed orthostasis felt to represent hypertonic diuresis. Chest x-ray, cardiac enzymes , EKG, continuous telemetry monitoring, and resting echocardiography are without significant abnormality. Recommend continuing without lisinopril given the observed hypotension. Would continue atorvastatin. No overt indication for ASA, patient prescribed chronic Coumadin anticoagulation. Inpatient exercise stress testing has been canceled given ongoing noncardiac issues. Outpatient stress testing recommended in [place] in ~2 weeks given his multiple cardiac risk factors (long-standing type 2 diabetes mellitus and tobacco abuse, hypertension, dyslipidemia). Patient seen and examined. Plan assessment as well outlined above. Current complaints appear noncardiac in etiology with dizziness and orthostasis likely multifactorial origin including profound hyper glycemia. Would recommend completion of evaluation with outpatient stress testing as noted Greg Chavez MD Laboratory Results Last 24 Hours Test 08/16/17 11:45 08/16/17 12:07 08/16/17 16:22 08/16/17 18:40 Bedside Glucose 196 mg/dl 271 mg/dl Potassium Level 3.9 mmol/L 4.0 mmol/L Magnesium Level 2.2 mg/dl Troponin I < 0.015 ng/ml Test 08/16/17 20:19 08/17/17 05:13 08/17/17 05:54 08/17/17 07:18 Bedside Glucose 182 mg/dl 97 mg/dl 214 mg/dl White Blood Count 5.93 K/uL Red Blood Count 4.34 M/uL Hemoglobin 13.0 g/dL Hematocrit 39.1 % Mean Corpuscular Volume 90.1 fL Mean Corpuscular Hemoglobin 30.0 pg Mean Corpuscular Hemoglobin Concent 33.2 g/dl Platelet Count 155 K/uL Mean Platelet Volume 10.3 fL RDW Standard Deviation 46.2 fL RDW Coefficient of Variation 13.9 % Neutrophils % (Manual) 32.2 % Lymphocytes % (Manual) 41.7 % Variant Lymphocytes % (manual) 19.1 % Monocytes % (Manual) 2.6 % Eosinophils % (Manual) 3.5 % Basophils % (Manual) 0.9 % Neutrophils # (Manual) 1.91 K/uL Total Absolute Neutrophils 1.91 K/uL Lymphocytes # (Manual) 2.47 K/uL Absolute Variant Lymphocytes 1.13 K/uL Total Absolute Lymphocytes 3.61 K/uL Monocytes # (Manual) 0.15 K/uL Eosinophils # (Manual) 0.21 K/uL Basophils # (Manual) 0.05 K/uL Red Blood Cell Morphology Unremarkable Prothrombin Time 10.8 SECONDS Prothromb Time International Ratio 1.0 Sodium Level 139 mmol/L Potassium Level 4.0 mmol/L Chloride Level 107 mmol/L Carbon Dioxide Level 29 mmol/L Anion Gap 3.0 mmol/L Blood Urea Nitrogen 9 mg/dl Creatinine 0.99 mg/dl Est Creatinine Clear Calc Drug Dose 79.6 ml/min Estimated GFR () 101.8 Estimated GFR (Non- 87.8 BUN/Creatinine Ratio 8.8 Random Glucose 196 mg/dl Calcium Level 8.6 mg/dl Total Bilirubin 0.3 mg/dl Aspartate Amino Transf (AST/SGOT) 10 U/L Alanine Aminotransferase (ALT/SGPT) 14 U/L Alkaline Phosphatase 85 U/L Total Protein 6.3 gm/dl Albumin 3.1 gm/dl Globulin 3.2 gm/dl Albumin/Globulin Ratio 1.0 Test 08/17/17 08:26 Bedside Glucose 194 mg/dl
--- NOTE | 2017-08-17 12:02 | Progress Note ---
Internal Med Progress Note Date of Service: August 17, 2017. Provider Documentation: SUBJECTIVE: Patient denies pain or shortness of breath OBJECTIVE: Exam: General- no acute distress Eyes- EOMI Neck- no JVD Lungs- CTABL, no wheezing Heart- regular rate Abdomen- soft, nontender, + bowel sounds Extremities- no edema Neuro- awake and alert ASSESSMENT & PLAN: Chest pain evaluation: -initial cardiac evaluation does not suggest acute ischemia. -Echocardiogram Conclusions: The left ventricle is normal in size. There is borderline concentric left ventricular hypertrophy. Left ventricular systolic function is normal. The left ventricular wall motion is normal. Ejection Fraction = 60-65%. Aortic valve sclerosis mild, without significant aortic valvular stenosis. There is mild tricuspid regurgitation. Outpatient stress testing recommended in [place] in ~2 weeks Diabetes type 2 with HbA1c of 15 -patient given prescriptions for metformin and glipizide and Lantus 10 units BID with prescriptions for diabetes supplies (Lantus solostar pen, BD Leonarda insulin pen needles, OneTouch Verio test strips to check up to 4x/day, OneTouch Delica lancets to check up to 4x/day) Hypokalemia -likely from insulin for the diabetes management while in the hospital -Hypokalemia has resolved after potassium supplements on 08/16/17 Blood pressure -cardiology service concerned for orthostasis, this may be due to patient's 300 mg TID doses of gabapentin for neuropathy -Patient given prescription for gabapentin 300 mg daily -Patient given prescription for lisinopril Hyperlipidemia -Patient given prescription for Lipitor Tobacco use -Smoking Cessation Encouraged -Nicotine patches prescribed History of deep venous thrombosis diagnosed in the past -subtherapeutic INR as patient did not take coumadin for 1 week prior to coming to the hospital -Ultrasound lower extremities 08/16/17: 1. Nonocclusive deep venous thrombus within the right common femoral, superficial femoral and popliteal veins. Although age indeterminate, this thrombus is likely chronic when correlating with ultrasound of October 12, 2015 which demonstrated thrombus within these vessels. 2. 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 Patient has follow up appointment to see the primary care provider on 08/23/17 and should get blood test drawn to check if the INR level is 2 to 3 from the Coumadin (warfarin) Cardiology recommends Outpatient stress testing in [place] in ~2 weeks Primary Care : 08/23/2017 1:20 PM Meghan Madison PA-C [facility] [place] 09/02/2017 7:00 AM [facility] [place] Vital Signs: Date Time Temp Pulse Resp B/P (MAP) Pulse Ox O2 Delivery O2 Flow Rate FiO2 08/17/17 12:06 36.7 71 16 90/60 (70) 97 Room Air 08/17/17 12:00 Room Air 08/17/17 08:00 Room Air 08/17/17 07:47 36.6 61 16 95/68 (77) 100 08/17/17 04:00 36.5 61 20 92/62 (72) 96 Room Air 08/17/17 04:00 96 Room Air 08/17/17 00:00 36.4 63 18 96/64 (75) Room Air 08/17/17 00:00 98 Room Air 08/16/17 20:00 97 Room Air 08/16/17 19:14 37.0 66 18 85/52 (63) 97 Room Air 08/16/17 16:00 97 Room Air 08/16/17 15:21 36.9 64 16 91/59 (70) 97 Room Air Lab Results: Results Past 24 Hours Test 08/16/17 16:22 08/16/17 18:40 08/16/17 20:19 08/17/17 05:13 Range/Units Bedside Glucose 271 182 70-99 mg/dl Potassium Level 4.0 4.0 3.5-5.1 mmol/L White Blood Count 5.93 4.8-10.8 K/uL Red Blood Count 4.34 4.7-6.1 M/uL Hemoglobin 13.0 14.0-18.0 g/dL Hematocrit 39.1 42-52 % Mean Corpuscular Volume 90.1 80-100 fL Mean Corpuscular Hemoglobin 30.0 25-34 pg Mean Corpuscular Hemoglobin Concent 33.2 32-36 g/dl Platelet Count 155 130-400 K/uL Mean Platelet Volume 10.3 7.4-10.4 fL RDW Standard Deviation 46.2 36.4-46.3 fL RDW Coefficient of Variation 13.9 11.5-14.5 % Neutrophils % (Manual) 32.2 % Lymphocytes % (Manual) 41.7 % Variant Lymphocytes % (manual) 19.1 % Monocytes % (Manual) 2.6 % Eosinophils % (Manual) 3.5 % Basophils % (Manual) 0.9 0-2 % Neutrophils # (Manual) 1.91 1.4-6.5 K/uL Total Absolute Neutrophils 1.91 1.4-6.5 K/uL Lymphocytes # (Manual) 2.47 1.2-3.4 K/uL Absolute Variant Lymphocytes 1.13 K/uL Total Absolute Lymphocytes 3.61 1.2-3.4 K/uL Monocytes # (Manual) 0.15 0.11-0.59 K/uL Eosinophils # (Manual) 0.21 0-0.5 K/uL Basophils # (Manual) 0.05 0-0.2 K/uL Red Blood Cell Morphology Unremarkable Prothrombin Time 10.8 9.0-12.0 SECONDS Prothromb Time International Ratio 1.0 0.9-1.1 Sodium Level 139 136-145 mmol/L Chloride Level 107 98-107 mmol/L Carbon Dioxide Level 29 21-32 mmol/L Anion Gap 3.0 3-11 mmol/L Blood Urea Nitrogen 9 7-18 mg/dl Creatinine 0.99 0.60-1.40 mg/dl Est Creatinine Clear Calc Drug Dose 79.6 ml/min Estimated GFR () 101.8 Estimated GFR (Non- 87.8 BUN/Creatinine Ratio 8.8 10-20 Random Glucose 196 70-99 mg/dl Calcium Level 8.6 8.5-10.1 mg/dl Total Bilirubin 0.3 0.2-1 mg/dl Aspartate Amino Transf (AST/SGOT) 10 15-37 U/L Alanine Aminotransferase (ALT/SGPT) 14 12-78 U/L Alkaline Phosphatase 85 45-117 U/L Total Protein 6.3 6.4-8.2 gm/dl Albumin 3.1 3.4-5.0 gm/dl Globulin 3.2 2.5-4.0 gm/dl Albumin/Globulin Ratio 1.0 0.9-2 Test 08/17/17 05:54 08/17/17 07:18 08/17/17 08:26 08/17/17 11:05 Range/Units Bedside Glucose 97 214 194 259 70-99 mg/dl
[2017-08-17 12:06] VITALS: BP 90/60; PULSE 71; TEMP 36.7; O2SAT 97
[2017-08-17] MEDS ORDERED: LVNIS100 SQ (12:08)
[2017-08-17] MEDS ORDERED: GLIP5TAB11 PO (12:08)
[2017-08-17] MEDS ORDERED: GLC/500 PO (12:08)
[2017-08-17] MEDS ORDERED: [UNRECOGNIZED DRUG - CODE] (12:16)
[2017-08-17] MEDS ORDERED: GABA-113 PO (12:16)
[2017-08-17] MEDS ORDERED: BLOO1KIT92 (12:22)
[2017-08-17] MEDS ORDERED: LANC-393 (12:22)
[2017-08-17] MEDS ORDERED: INSDGIPEN SC ×2 (12:24→12:25)
[2017-08-17] MEDS ORDERED: NICO7DIS7 TD (13:27)
--- NOTE | 2017-08-17 13:31 | Discharge Instructions ---
Discharge Instructions Date of Service August 17, 2017. Admission Reason for Admission: Chest Pain Discharge Discharge Diagnosis / Problem: (1) Right leg DVT (2) Diabetes mellitus (3) Chest pain (4) Noncompliance with medications VTE Date & Time Date of VTE Diagnosis: August 16, 2017 Time of VTE Diagnosis: 09:07 Discharge Goals Goal(s): Improve function Activity Recommendations Activity Limitations: per Instructions/Follow-up section Shower/Bathe: no limitations . Instructions / Follow-Up Instructions / Follow-Up Medication Instructions: * Warfarin is a medicine prescribed to prevent blood clots * Warfarin will thin your blood and help prevent new clots * Take your medications exactly as directed * Never skip a dose. Never take a double dose. If you miss a dose, take it as soon as you remember * It is important for your doctor to monitor your prothrombin time (PT). This is a lab test * Keep your appointment for lab tests Risk of Adverse Drug Reactions and Interactions: * Warfarin increases your risk of bleeding * The food you eat and other medications you take can affect how Warfarin works in your body * Ask your doctor about daily aspirin therapy * It is very important to talk with your doctor about all of the other medicines , antibiotics, vitamins or herbal products that you are taking * All of your medication must be approved by your doctor, including new medicines, as well as medicines you have taken before you started taking Warfarin Diet: * In order for Warfarin to work properly, it is important to keep your intake of Vitamin K as consistent as possible * You should avoid any sudden change in Vitamin K intake * Report any significant changes in your diet or weight to your doctor Call your Primary Care doctor if you experience any of the following: * Swelling or Pain in your leg * Sudden, continuous pain deep in a muscle * Pain that worsens when you are active or when you stand still for a long time * Chest Pain * Sudden Shortness of Breath * Rapid or pounding heart beat * Fainting * Dizziness * Cough with blood or bloody sputum * Sweating more than normal * Bruises * Heavy or uncontrolled bleeding * Blood in your urine, stool or vomit * Black or tarry stools Caring for Your Self at Home: * Avoid sitting, standing or lying down for long periods without moving your legs and feet * When traveling by car, stop to get out and move around at least once every 3 hours * On long airplane, train or bus rides, get up and move around when possible * If you can't get up, wiggle your toes and tighten your calves to keep your blood moving Follow Up: It is important for you to keep your follow up appointments with your medical provider. Current Hospital Diet Patient's current hospital diet: Diabetes Type 2 Diet, AHA Diet (Heart Healthy) Discharge Diet Recommended Diet: AHA Diet (Heart Healthy), Diabetes Type 2 Diet Pending Studies Studies pending at discharge: no Laboratory Results 08/17/17 05:13 Red Blood Count 4.34, Mean Corpuscular Volume 90.1, Mean Corpuscular Hemoglobin 30.0, Mean Corpuscular Hemoglobin Concent 33.2, Mean Platelet Volume 10.3 08/17/17 05:13 Test 08/15/17 21:38 08/15/17 22:25 08/15/17 23:40 08/15/17 23:42 Creatine Kinase MB 1.3 ng/ml (0.5-3.6) Creatine Kinase MB Ratio (0-3.0) D-Dimer 210 ug/L FEU (0-500) Total Creatine Kinase 73 U/L (39-308) Beta-Hydroxybutyric Acid 1.81 mg/dL (0.2-2.81) Urine Color YELLOW Urine Appearance CLEAR (CLEAR) Urine pH 5.0 (4.5-7.5) Urine Specific [place] 1.043 (1.000-1.030) Urine Protein NEG (NEG) Urine Glucose (UA) 3+ (NEG) Urine Ketones NEG (NEG) Urine Occult Blood NEG (NEG) Urine Nitrite NEG (NEG) Urine Bilirubin NEG (NEG) Urine Urobilinogen NEG (NEG) Urine Leukocyte Esterase NEG (NEG) Urine WBC (Auto) 0 /hpf (0-5) Urine RBC (Auto) 0-4 /hpf (0-4) Urine Hyaline Casts (Auto) 0 /lpf (0-5) Urine Epithelial Cells (Auto) 0-5 /lpf (0-5) Urine Bacteria (Auto) NEG (NEG) Venous Blood pH 7.42 (7.36-7.41) Venous Blood Partial Pressure CO2 45 mmHg (38.0-50.0) Venous Blood Partial Pressure O2 38 mmHg Venous Blood HCO3 28 mmol/L Venous Blood Oxygen Saturation 75.0 % Venous Blood Base Excess 3.3 mEq/L Test 08/16/17 05:44 08/16/17 12:07 08/17/17 05:13 08/17/17 11:05 Immature Granulocyte % (Auto) 0.2 % White Blood Count 5.77 K/uL (4.8-10.8) 5.93 K/uL (4.8-10.8) Red Blood Count 4.03 M/uL (4.7-6.1) 4.34 M/uL (4.7-6.1) Hemoglobin 12.2 g/dL (14.0-18.0) 13.0 g/dL (14.0-18.0) Hematocrit 35.7 % (42-52) 39.1 % (42-52) Mean Corpuscular Volume 88.6 fL (80-100) 90.1 fL (80-100) Mean Corpuscular Hemoglobin 30.3 pg (25-34) 30.0 pg (25-34) Mean Corpuscular Hemoglobin Concent 34.2 g/dl (32-36) 33.2 g/dl (32-36) Platelet Count 165 K/uL (130-400) 155 K/uL (130-400) Mean Platelet Volume 10.5 fL (7.4-10.4) 10.3 fL (7.4-10.4) Neutrophils (%) (Auto) 34.1 % Lymphocytes (%) (Auto) 56.3 % Monocytes (%) (Auto) 6.1 % Eosinophils (%) (Auto) 2.8 % Basophils (%) (Auto) 0.5 % Neutrophils # (Auto) 1.97 K/uL (1.4-6.5) Lymphocytes # (Auto) 3.25 K/uL (1.2-3.4) Monocytes # (Auto) 0.35 K/uL (0.11-0.59) Eosinophils # (Auto) 0.16 K/uL (0-0.5) Basophils # (Auto) 0.03 K/uL (0-0.2) Immature Granulocyte # (Auto) 0.01 K/uL (0.00-0.02) Estimated Average Glucose 384 mg/dl Hemoglobin A1c 15.0 % (4.5-5.6) Triglycerides Level 118 mg/dl (0-150) Cholesterol Level 191 mg/dl (0-200) HDL Cholesterol 34 mg/dl LDL Cholesterol, Calculated 133 mg/dl VLDL Cholesterol, Calculated 24 mg/dl Cholesterol/HDL Ratio 5.6 Magnesium Level 2.2 mg/dl (1.8-2.4) Troponin I < 0.015 ng/ml (0-0.045) RDW Standard Deviation 46.2 fL (36.4-46.3) RDW Coefficient of Variation 13.9 % (11.5-14.5) Neutrophils % (Manual) 32.2 % Lymphocytes % (Manual) 41.7 % Variant Lymphocytes % (manual) 19.1 % Monocytes % (Manual) 2.6 % Eosinophils % (Manual) 3.5 % Basophils % (Manual) 0.9 % (0-2) Neutrophils # (Manual) 1.91 K/uL (1.4-6.5) Total Absolute Neutrophils 1.91 K/uL (1.4-6.5) Lymphocytes # (Manual) 2.47 K/uL (1.2-3.4) Absolute Variant Lymphocytes 1.13 K/uL Total Absolute Lymphocytes 3.61 K/uL (1.2-3.4) Monocytes # (Manual) 0.15 K/uL (0.11-0.59) Eosinophils # (Manual) 0.21 K/uL (0-0.5) Basophils # (Manual) 0.05 K/uL (0-0.2) Red Blood Cell Morphology Unremarkable Prothrombin Time 10.8 SECONDS (9.0-12.0) Prothromb Time International Ratio 1.0 (0.9-1.1) Anion Gap 3.0 mmol/L (3-11) Est Creatinine Clear Calc Drug Dose 79.6 ml/min Estimated GFR () 101.8 Estimated GFR (Non- 87.8 BUN/Creatinine Ratio 8.8 (10-20) Calcium Level 8.6 mg/dl (8.5-10.1) Total Bilirubin 0.3 mg/dl (0.2-1) Aspartate Amino Transf (AST/SGOT) 10 U/L (15-37) Alanine Aminotransferase (ALT/SGPT) 14 U/L (12-78) Alkaline Phosphatase 85 U/L (45-117) Total Protein 6.3 gm/dl (6.4-8.2) Albumin 3.1 gm/dl (3.4-5.0) Globulin 3.2 gm/dl (2.5-4.0) Albumin/Globulin Ratio 1.0 (0.9-2) Bedside Glucose 259 mg/dl (70-99) Hemoglobin A1c Test 08/16/17 05:44 Range/Units Estimated Average Glucose 384 mg/dl Hemoglobin A1c 15.0 H 4.5-5.6 % Lipid Panel Test 08/16/17 05:44 Range/Units Triglycerides Level 118 0-150 mg/dl Cholesterol Level 191 0-200 mg/dl HDL Cholesterol 34 mg/dl Cholesterol/HDL Ratio 5.6 LDL Cholesterol, Calculated 133 mg/dl Medical Emergencies . Who to Call and When: Medical Emergencies: If at any time you feel your situation is an emergency, please call 911 immediately. . Non-Emergent Contact Non-Emergency issues call your: Primary Care Provider Call Non-Emergent contact if: you have any medication questions . . "Provider Documentation" section prepared by Cal Rider. . VTE Core Measure Reason no anticoag overlap I/P: Treatment provided - N/A Reason no anticoag overlap @DC: Treatment provided - N/A
--- NOTE | 2017-08-17 13:32 | Discharge Summary ---
Discharge Summary Date of Service August 17, 2017. Discharge Summary Admission Date: August 16, 2017 at 01:18 Discharge Date: August 17, 2017 Discharge Disposition: Home Principal Diagnosis: chronic Right leg DVT coumadin INR monitoring, bridging with Lovenox Diabetes mellitus on insulin Chest pain Noncompliance with medications Smoking Medication Reconciliation New Medications: Blood Glucose Monitoring Suppl ([employer] Verio W/Device) 1 Kit Kit KIT, #1 prescribe with One Touch Verio Test strips (120 strips) so patient can check up to 4 times in a day Injection Device For Insulin (Bd Pen) 1 Mis Mis BOX, #1 prescribe as the BD Leonarda insulin pen needles Insulin Glargine (Lantus Solostar) 100 Unit/Ml Inj 10 UNITS SC BID for 30 Days, #30 PEN Lancets ([employer] Delica Lancets) 1 Mis Mis APPL, #120 to be used up to 4 times a day Nicotine (Nicoderm Cq 7 Mg Patch) 7 Mg/24 Hr Dis 7 MG TD DAILY for 30 Days, #30 PATCH Enoxaparin (Enoxaparin Sodium) 100 Mg/Ml Inj 100 MG SQ Q24H for 3 Days, #300 MG Changed Medications: Gabapentin (Neurontin) 300 Mg Cap 300 MG PO DAILY for 30 Days, #30 CAP (Changed from: TID) Continued Medications: Atorvastatin (Lipitor) 40 Mg Tab 40 MG PO HS, TAB Glipizide (Glucotrol) 5 Mg Tab 5 MG PO BID for 30 Days, #60 TAB (This prescription has been renewed) TAKE THIS MEDICATION TWICE DAILY 30 MINUTES BEFORE MORNING AND EVENING MEALS Lisinopril (Lisinopril) 2.5 Mg Tab 2.5 MG PO DAILY, TAB Metformin Hcl (Glucophage) 500 Mg Tab 1000 MG PO BID for 30 Days, #120 TAB (This prescription has been renewed) Warfarin Sod (Jantoven) 5 Mg Tab 5 MG PO DAILY, TAB TAKE 5 MG EVERY DAY OR OTHERWISE DIRECTED TO TAKE BY ANTICOAGULATION CLINIC/MD Discontinued Medications: Insulin Glargine (Lantus) 100 Unit/Ml Inj 10 UNITS SC QPM, VIAL Admission Information HPI (per Admitting provider): CHIEF COMPLAINT: Chest pain. HISTORY OF PRESENT ILLNESS: This 51-year-old male with past medical history significant for diabetes type 2, hyperlipidemia, tobacco disorder, hypertension, presents with chest pain. The patient says he walked outside, came and sat in a chair in the evening when he noticed mild chest discomfort and also some numbness in the right hand and some dizziness, which brought him to the ER. By the time he was seen in the ER, the symptoms resolved. Currently, resting comfortably and hemodynamically stable. Denies any headaches. No blurred vision. No earache, no runny nose, no sore throat, no difficulty swallowing, no shortness of breath, no cough, no fever, no chills. Appetite is okay. No nausea, no vomiting, no sweating, no abdominal pain. Normal bowel and bladder movements. No blood in stools, no blood in the urine. Currently, no edema in the lower extremities. No rash. Patient did not visit his family doctor since more than a year now and not taking his medications except for Coumadin. The patient says he is noncompliant with meds , because he is having hectic work schedule He says he can afford most of the medications except for Lantus, which is expensive. ALLERGIES: BEE VENOM. PAST MEDICAL HISTORY: As mentioned above. PAST SURGICAL HISTORY: Appendectomy, tonsillectomy, cataract surgeries, vasectomy. MEDICATIONS: Supposed to be on atorvastatin 40 mg p.o. at bedtime, gabapentin 300 mg p.o. t.i.d., glipizide 5 mg p.o. b.i.d., lisinopril 2.5 mg p.o. daily, Lantus 10 units at bedtime, Coumadin 5 mg p.o. daily, Glucophage 1000 mg p.o. b.i.d. FAMILY HISTORY: Significant for mother had diabetes, hypertension, and migraines. SOCIAL HISTORY: Smokes 1 pack a day. No alcohol use. No drug use. REVIEW OF SYMPTOMS: As per HPI. Rest of review of symptoms negative. Physical Exam (per Admitting): PHYSICAL EXAMINATION: GENERAL: Patient is of moderate build, not in distress. VITAL SIGNS: Temperature 36.9, pulse 70, respiratory rate 16, blood pressure 111/73, oxygen 98% on room air. HEENT: No pallor, no icterus. Pupils equal, round, and reactive to light. NECK: No JVD, no neck masses, no carotid bruits. CARDIOVASCULAR: S1, S2, regular rate and rhythm, no murmur, no gallop. RESPIRATORY SYSTEM: Clear to auscultation bilaterally. No wheezing, no crackles. ABDOMEN: Soft, bowel sounds present. Nontender. No distention. CENTRAL NERVOUS SYSTEM: Cranial nerves II-XII grossly intact. Nonfocal. EXTREMITIES: No edema, no erythema. Hospital Course Chest pain evaluation: -initial cardiac evaluation does not suggest acute ischemia. -Echocardiogram Conclusions: The left ventricle is normal in size. There is borderline concentric left ventricular hypertrophy. Left ventricular systolic function is normal. The left ventricular wall motion is normal. Ejection Fraction = 60-65%. Aortic valve sclerosis mild, without significant aortic valvular stenosis. There is mild tricuspid regurgitation. Outpatient stress testing recommended in [place] in ~2 weeks Diabetes type 2 with HbA1c of 15 -patient given prescriptions for metformin and glipizide and Lantus 10 units BID with prescriptions for diabetes supplies (Lantus solostar pen, BD Leonarda insulin pen needles, OneTouch Verio test strips to check up to 4x/day, OneTouch Delica lancets to check up to 4x/day) Hypokalemia -likely from insulin for the diabetes management while in the hospital -Hypokalemia has resolved after potassium supplements on 08/16/17 Blood pressure -cardiology service concerned for orthostasis, this may be due to patient's 300 mg TID doses of gabapentin for neuropathy -Patient given prescription for gabapentin 300 mg daily -Patient given prescription for lisinopril Hyperlipidemia -Patient given prescription for Lipitor Tobacco use -Smoking Cessation Encouraged -Nicotine patches prescribed History of deep venous thrombosis diagnosed in the past -subtherapeutic INR as patient did not take coumadin for 1 week prior to coming to the hospital -Ultrasound lower extremities 08/16/17: 1. Nonocclusive deep venous thrombus within the right common femoral, superficial femoral and popliteal veins. Although age indeterminate, this thrombus is likely chronic when correlating with ultrasound of October 12, 2015 which demonstrated thrombus within these vessels. 2. 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 Patient has follow up appointment to see the primary care provider on 08/23/17 and should get blood test drawn to check if the INR level is 2 to 3 from the Coumadin (warfarin) Cardiology recommends Outpatient stress testing in [place] in ~2 weeks Primary Care : 08/23/2017 1:20 PM Meghan Madison PA-C [facility] 09/02/2017 7:00 AM [facility], [place] Total time spent on discharge = 40 minutes This includes examination of the patient, discharge planning, medication reconciliation, and communication with other providers. Discharge Instructions see above
[2017-08-17] MEDS: WARFARIN SOD 5 MG TAB PO SCH (14:12)
[2017-08-17 14:19] VITALS: BP 90/60; PULSE 71; TEMP 36.7; O2SAT 97
[2017-08-17] MEDS ORDERED: ENOXAPARIN 100 MG/1ML SYR SQ SCH (16:00)
== END 2017-08-17 15:14 | disposition home or self-care (01) ==
LOC: C.EDB 21:03 → C.2T 08-16 01:18 → ENRESERV 08-16 01:26
PROVIDERS: ADMIT Hospitalist; ATTEND Hospitalist
DX: R07.9 Chest pain, unspecified (principal); E11.9 Type 2 diabetes mellitus without complications; F17.200 Nicotine dependence, unspecified, uncomplicated; I10 Essential (primary) hypertension; E78.5 Hyperlipidemia, unspecified; E87.6 Hypokalemia; Z86.718 Personal history of other venous thrombosis and embolism; Z91.14 Patient's other noncompliance with medication regimen; Z91.030 Bee allergy status; Z90.49 Acquired absence of other specified parts of digestive tract; Z79.01 Long term (current) use of anticoagulants; Z83.3 Family history of diabetes mellitus; Z82.49 Family history of ischemic heart disease and other diseases of the circulatory system